=== PATIENT | male | born 1970 | race American Indian/Alaskan Native ===

== ENCOUNTER 2025-02-22 13:26 | Outpatient (AMB) | payer OTHER, SELFPAY ==
--- NOTE | 2025-02-22 13:30 | MHC.PC.OV ---
Vital Signs 02/22/25 13:38 Height 5 ft 5 in Weight 159 lb BMI 26.5 BP 135/84 Blood Pressure Location Lt brachial Position Sitting Respiration 16 Pulse 74 Pulse Source Pulse Oximeter Temp 97.8 F Temp Source Oral Pulse Oximetry (%) 100 Oxygen Delivery Method Room Air Intake Visit Reasons: Est. Care allergies and anemia Intake Note: patient here for new patient visit c/o allergies and anemia Flight Radio Officer Required: No Accompanied by: Daughter Allergies No Known Allergies Allergy (Verified 02/22/25 13:43) Medication List - Last Reconciled 02/22/25 by Cain Francis CNP No Known Home Meds Tobacco use date assessed: 02/22/25 Dental Screening Dental Screen Date: 02/22/25 Did you have a dental visit in the last 12 months?: No Did you have a dental problem in the last 6 months where you did not have access to dental care?: No Was dental information given to patient?: Yes HPI HPI Comments History of Present Illness Details 54-year-old [place] speaking male, accompanied by his daughter presents to establish care. He is not on prescription medications. He takes Claritin daily for allergies. Reports nosebleeds, moderate bright red blood from his nostrils 3-4 times daily, lasting 6-8 minutes. His last episode was around 12 noon today. He experiences fatigue with severe nosebleeds. His symptoms have been ongoing for the past 3 years; he has never been evaluated by a specialist. He reports associated runny nose and nasal congestion, denies headaches. He notes that his right ear was itching and therefore inserted a Q-tip in the ear 3 days ago which caused bleeding. Prior PCP? - Dr. Sanchez, [facility] Last office visit/CPE/labs - 10 years ago Acute issue(s) - None Past Medical History - Anemia, nosebleeds, Allergies Surgical History - None Family History - None Social History - Nonsmoker. Does not vape. Drinks 2 beers weekly . Denies recreational drug use - Has been making healthy dietary choices. Walks regularly. Generally sleep well Health maintenance - Last eye exam was in 10/2022 with [facility]. Referred to [facility] for an eye exam - Last dental was several years ago; encouraged to schedule an appointment with his dentist for routine dental care - Last tetanus vaccine was more than 10 years ago; received Tdap vaccine today - He has not been vaccinated for shingles. Encouraged to get vaccinated for shingles at the local pharmacy - Has not been vaccinated for the flu this season; receives vaccination today - He has never had a colonoscopy. Referred to [facility] gastroenterology for colonoscopy Specialists - None Interpretation by the patient's daughter per patient's preference. [facility] Social History Housing: House Patient Tobacco Use Status: Never used Tobacco e-Cigarette/Vaping Use: Never Used Second Hand Smoke Exposure: No service: No Current occupational status: employed Current occupation: [employer] Current occupational exposures/hazards: No Cognitive needs: No Hearing needs: No Vision needs: No Questionnaire PHQ-9 Over the last 2 weeks, how often have you been bothered by any of the following problems? 1. Little interest or pleasure in doing things: not at all 2. Feeling down, depressed, or hopeless: not at all 3. Trouble falling or staying asleep, or sleeping too much: several days 4. Feeling tired or having little energy: not at all 5. Poor appetite or overeating: not at all 6. Feeling bad about yourself - or that you are a failure or have let yourself or your family down: not at all 7. Trouble concentrating on things, such as reading the newspaper or watching television: not at all 8. Moving or speaking so slowly that other people could have noticed. Or the opposite - being so fidgety or restless that you have been moving around a lot more than usual: not at all 9. Thoughts that you would be better off or of hurting yourself in some way: not at all Total score: 1 Depression Screening Interpretation: Negative Depression Screening Done: Yes 64709 - PHQ-9 Billing: Yes Source: Developed by Drs. Chance Rondon, Maira Barrios, Jorje Harvey and colleagues, with an educational rl from [employer]. Thrive Questionnaire Date Thrive assessed: 02/22/25 I am a: Patient What is your living situation today?: I have a steady place to live Within the past 12 months, did the food you bought not last and you didn't have the money to get more?: I choose not to answer this question Within the past 12 months, did you worry whether your food would run out before you got money to buy more?: I choose not to answer this question Do you have trouble paying for medicines?: No Do you have trouble getting transportation to medical appointments?: No Do you have trouble paying your heating and electricity bill?: No Do you have trouble taking care of your child, family member or friend?: No Do you have trouble with day-to-day activities such as bathing, preparing meals, shopping, managing finances, etc.?: No Are you currently unemployed and looking for a job?: No Are you interested in more education?: I choose not to answer this question Please select the resources that you would like help with: None Currently or been in a relationship where the following occur: I choose not to answer THRIVE Score: 0 AUDIT C Alcohol Use Questionnaire (AUDIT-C) 1. How often do you have a drink containing alcohol?: 2-3 times a week 2. How many drinks containing alcohol do you have on a typical day when you are drinking?: 1 or 2 3. How often do you have six or more drinks on one occasion?: Weekly Total Score: 6 Score Reviewed/Action Taken: Yes TRACY-7 AMB Questionnaire TRACY-7 Date TRACY - 7 assessed: 02/22/25 Feeling nervous, anxious, or on edge: 0 = Not at all Not being able to stop or control worryin = Not at all Worrying too much about different things: 0 = Not at all Trouble relaxin = Not at all Being so restless that it is hard to sit still: 0 = Not at all Becoming easily annoyed or irritable: 0 = Not at all Feeling afraid as if something awful might happen: 0 = Not at all Total TRACY-7 score (0-4 normal; 5-9 mild; 10-14 moderate; 15-21 severe): 0 Source: Developed by Drs. Chance Rondon, Maira Barrios, Jorje Harvey and colleagues, with an educational rl from [employer]. TRACY-7 Assessment Billing TRACY-7 Assessment Tool: TRACY-7 Assessment 71959 Review of Systems Const Details: Denies chills, Denies fatigue, Denies fever(s), Denies headache(s) and Denies weakness HEENT Reports nasal congestion, Denies change in vision, Denies dizziness, Denies headache(s), Denies hearing loss, Denies sinus pain, Denies sinus pressure and Denies sore throat Card Denies chest pain, Denies lightheadedness, Denies dyspnea and Denies other (palpitations) Resp Denies cough, Denies dyspnea and Denies wheezing GI Denies abdominal pain, Denies melena, Denies hematochezia, Denies change in bowel habits, Denies dyspepsia and Denies nausea Denies hematuria and Denies dysuria Musc Denies abnormal gait, Denies myalgias, Denies arthralgias, Denies numbness and Denies tingling Skin/Breast Denies rash, Denies unusual bruising and Denies wounds Neuro Denies abnormal gait, Denies dizziness, Denies headache(s), Denies memory loss, Denies numbness, Denies Sensory deficit (Neuro), Denies tingling and Denies weakness Psych Denies anxiety, Denies depression and Denies memory loss Endo Denies cold intolerance, Denies fatigue, Denies heat intolerance, Denies polydipsia and Denies polyuria Yimi/Lymph Reports nosebleeds and Denies easy bruising Aller/Immun Denies wheezing Physical exam (Primary Care) Vital Signs: Last Vital Signs Temp 97.8 F 02/22/25 13:38 Pulse 74 02/22/25 13:38 Resp 16 02/22/25 13:38 BP 135/84 02/22/25 13:38 Pulse Ox 100 02/22/25 13:38 Oxygen Delivery Method Room Air 02/22/25 13:38 BMI result Body Mass Index 26.5 Tobacco/Smoking Status: Tobacco use Status Tobacco use date assessed 02/22/25 02/22/25 13:38 Patient Tobacco Use Status Never used Tobacco 02/22/25 13:38 e-Cigarette/Vaping Use Never Used 02/22/25 13:38 PHQ-9: PHQ-9 Score PHQ-9: Total score 1 02/22/25 14:26 Depression Screening Interpretation: Negative Thrive Assessment: Date of Thrive Assessment Date Thrive assessed 02/22/25 02/22/25 13:35 Currently or been in a relationship where the following occur: I choose not to answer Const Other: General: no acute distress, well developed, alert and awake Nutritional Appearance: well nourished Orientation/consciousness: patient oriented x3 HENMT Head: Yes normocephalic and Yes atraumatic Ears: hearing grossly normal bilaterally and left TM normal. Right TM with approximately a quarter rupture, no blood or active bleeding noted General nose exam: Nasal turbinate with moderate erythema in significant edema, left worse than right. Dried blood noted in left nare. No active bleeding. Normal external nose present Mouth: Normal oral and palatal mucosa present and moist mucous membranes Teeth and gingiva: dentition normal Throat: Yes oropharynx normal Eyes Pupils: Equal, round and reactive pupils present and Pupil accommodation reflex normal EOM: EOMs intact bilaterally Neck Neck: Yes normal visual inspection, Yes no lymphadenopathy and Yes trachea midline Thyroid: Thyroid normal Carotids: no bruits Lymphatic: no lymphadenopathy noted Chest Chest palpation & inspection: normal inspection of the chest Resp Effort & Inspection: normal respiratory effort Auscultation: clear to auscultation bilaterally Cardio Rate: regular rate Rhythm: regular rhythm Heart sounds: S1 normal heart sound present, S2 normal heart sound present, no gallops, no murmurs and no rubs Bruits: no abdominal aortic bruits and no carotid bruits GI Palpation (GI): No Abdominal aortic bruit present, Soft to palpation, nontender, No hepatosplenomegaly present and No Rebound tenderness present Auscultation: normal bowel sounds General: Yes no CVA tenderness Back/Spine/Pelvis Back: no CVA tenderness Cervical Spine: cervical ROM normal and No Cervical spine tenderness Thoracic/Lumbar Spine: thoraco-lumbar ROM normal, No pain with thoraco-lumbar ROM, No thoracic spinal tenderness and No lumbar spinal tenderness Skin General: warm and dry. Normal skin color. Normal skin turgor Lesions: no lesions Rashes: no rashes Trauma: no lacerations or abrasions Wounds: no wounds Nails: normal Neuro General: patient oriented x3, gait normal and CN's II-XI intact bilaterally Cranial nerves: Yes Equal, round and reactive pupils present Cognition (Neuro): normal cognition Gait exam (Neuro): Normal gait present Motor exam (neuro): 5/5 motor strength present throughout Sensory Exam: No Sensory deficit (Neuro) Deep tendon reflexes (DTR's): Right patellar reflex intensity grade: 2+ and Left patellar reflex intensity grade: 2+ Extrem General: Yes normal to inspection, No edema and No calf tenderness Psych Appearance: grossly normal Affect: normal affect Attitude: cooperative Thought process: Normal thought process present Office Procedures Flu Questionnaire Does the patient have a severe egg allergy?: No Does the patient have severe life threatening allergies?: No Does the patient have a fever or illness today?: No Has the patient ever had Guillain-Mehama Syndrome?: No Has the patient ever had any past reaction to a flu shot?: No Immunizations Fluarix 2610-7427 (PF) 45 mcg (15 mcg x 3)/0.5 mL IM syringe Performing Provider: Cain Francis CNP Performing Location: [facility] Administered by: Geovany Torres RN on 02/22/25 14:27 Dose Route Admin Location Dispensed Lot Number Expiration Date NDC Exhibition [employer]er 0.5 mL IM Left Deltoid 0.5 mL [id number] 11/19/25 [id number] [employer] VIS Given Date VIS Provided VIS Publication Date 02/22/25 Single Vaccine 24 Eligibility Eligibility Date Funding Source Not VFC Eligible 02/22/25 Private Boostrix Tdap 2.5 Lf unit-8 mcg-5 Lf/0.5 mL intramuscular syringe Performing Provider: Cain Francis CNP Performing Location: [facility] Administered by: Geovany Torres RN on 02/22/25 14:27 Dose Route Admin Location Dispensed Lot Number Expiration Date NDC Exhibition [employer]er 0.5 mL IM Left Deltoid 0.5 mL [id number] 03/15/27 [id number] [employer] Total Dispensed Waste 0.5 mL 0 % VIS Given Date VIS Provided VIS Publication Date 02/22/25 Single Vaccine 20 Eligibility Eligibility Date Funding Source Not VFC Eligible 02/22/25 Private Coding Level of Care Code New Pt Level 4 (45701) New Pt Prev Care 40-64y(34074) Diagnoses Normal physical examination, routine Z00.00 Epistaxis R04.0 Allergies T78.40XA Colon cancer screening Z12.11 Prostate cancer screening Z12.5 Eye exam, routine Z01.00 Perforated right tympanic membrane on examination H72.91 Laboratory tests ordered as part of a complete physical exam (CPE) Z00.00 Additional Codes TRACY-7 Assessment Billing - TRACY-7 Assessment Tool: TRACY-7 Assessment 70981 ([id number]) PHQ-9 - 15132 - PHQ-9 Billing: Yes ([id number]) Time Spent (min) 65 Assessment & Plan Assessment & Plan (1) Normal physical examination, routine: Code(s): Z00.00 - Encounter for general adult medical examination without abnormal findings Category: Medical Plan: No significant motion limitations noted. Continue current treatment regimen. Healthy diet and routine exercise encouraged. Perform lab work and follow-up for a telehealth visit for labs review in 2-4 weeks. Return sooner with symptoms or concerns. Verbalized understanding and agreed with the plan. (2) Epistaxis: Code(s): R04.0 - Epistaxis Category: Medical Plan: Reports nosebleeds, moderate bright red blood from his nostrils 3-4 times daily, lasting 6-8 minutes. His last episode was around 12 noon today. He experiences fatigue with severe nosebleeds. His symptoms have been ongoing for the past 3 years; he has never been evaluated by a specialist. He reports associated runny nose and nasal congestion, denies headaches. Nasal turbinate with moderate erythema in significant edema, left worse than right. Dried blood noted in left nare. No active bleeding. Flonase ordered; advised to use as prescribed. Continue to take Claritin daily. May take cetirizine instead if Claritin is not effective. Referred to ENT for further workup. Follow-up with worsening or new symptoms. Verbalized understanding and agreed with the plan. (3) Allergies: Code(s): T78.40XA - Allergy, unspecified, initial encounter Category: Medical Plan: Plan as above. (4) Colon cancer screening: Code(s): Z12.11 - Encounter for screening for malignant neoplasm of colon Category: Medical Plan: He has never had a colonoscopy. Referred to [facility] gastroenterology for colonoscopy. (5) Prostate cancer screening: Code(s): Z12.5 - Encounter for screening for malignant neoplasm of prostate Category: Medical Plan: Will check PSA level. (6) Eye exam, routine: Code(s): Z01.00 - Encounter for examination of eyes and vision without abnormal findings Category: Medical Plan: Last eye exam was in 10/2022 with [facility]. Referred to [facility] for an eye exam. (7) Perforated right tympanic membrane on examination: Code(s): H72.91 - Unspecified perforation of tympanic membrane, right ear Category: Medical Plan: He notes that his right ear was itching and therefore inserted a Q-tip in the ear 3 days ago which caused bleeding. Approximately a quarter of the TM appears to be ruptured, no blood or active bleeding noted. Declines hearing impairment. Follow-up as needed. Verbalized understanding and agreed with plan. (8) Laboratory tests ordered as part of a complete physical exam (CPE): Code(s): Z00.00 - Encounter for general adult medical examination without abnormal findings Category: Medical Plan: Fasting labs ordered as part of a complete physical exam. Advised to fast for at least 10 hours before getting labs drawn. May drink water Verbalized understanding and agreed with treatment plan. Plan Total time for this visit was 65 minutes. This include 50 minutes with patient for physical exam and chronic disease management/treatment, and 15 minutes reviewing, coordinating plan of care, and documenting. Orders: Orders Complete Blood Count Auto Diff Today Z00.00 - Encounter for general adult medical examination without abnormal findings Comprehensive [place]. Panel Fast Today Z00.00 - Encounter for general adult medical examination without abnormal findings Microalbumin, Random (w Creat) Today Z00.00 - Encounter for general adult medical examination without abnormal findings PSA, Ultra Sensitive Today Z00.00 - Encounter for general adult medical examination without abnormal findings TSH reflex Free T4 Today Z00.00 - Encounter for general adult medical examination without abnormal findings UA CC w/rflx Micro + Cult Today Z00.00 - Encounter for general adult medical examination without abnormal findings Lipid Panel Today Z00.00 - Encounter for general adult medical examination without abnormal findings Vitamin D 25-OH Total Today Z00.00 - Encounter for general adult medical examination without abnormal findings Influenza [id number] Immunization Today Z23 - Encounter for immunization TDaP Immunization Today Z23 - Encounter for immunization Referrals Ophthalmology Referral Z01.00 - Encounter for examination of eyes and vision without abnormal findings Ear/Nose/Throat Referral R04.0 - Epistaxis Gastroenterology Referral Z12.11 - Encounter for screening for malignant neoplasm of colon Medications: New fluticasone propionate 50 mcg/actuation (Flonase Allergy Relief) Administer into each nostril. Two actuations in each nostril daily x1 week; and then 1-2 actuations in each nostril daily 2 sprays intranasal DAILY 16 grams 2RF
[2025-02-22 13:38] VITALS: BP 135/84; PULSE 74; RESP 16; TEMP 36.6; O2SAT 100; BMI 26.5
== END 2025-02-22 14:26 | disposition home or self-care (01) ==
LOC: HO.HMCFM 13:26
PROVIDERS: PCP Nurse Practitioner Family; Visit Provider Nurse Practitioner Family
DX: Z00.00 Encounter for general adult medical examination without abnormal findings (principal); R04.0 Epistaxis; H72.91 Unspecified perforation of tympanic membrane, right ear; T78.40XA Allergy, unspecified, initial encounter; Z12.11 Encounter for screening for malignant neoplasm of colon; Z12.5 Encounter for screening for malignant neoplasm of prostate; Z23 Encounter for immunization

== ENCOUNTER → 2025-02-22 13:26 | Outpatient (BNVA) | payer OTHER, SELFPAY | PROVIDERS: PCP Nurse Practitioner Family; Visit Provider Nurse Practitioner Family | DX: Z00.00 Encounter for general adult medical examination without abnormal findings (principal); R04.0 Epistaxis; H72.91 Unspecified perforation of tympanic membrane, right ear; Z23 Encounter for immunization; Z91.09 Other allergy status, other than to drugs and biological substances | CPT/HCPCS: 90471; 90472; 90656; 90715; 96127; 99202; 99386 ==

== ENCOUNTER 2025-02-25 10:12 | Outpatient (REF) | payer OTHER, SELFPAY ==
[2025-02-25 11:36] LABS: MANUAL DIFF FLAG NO
[2025-02-25 11:40] LABS: Hematocrit 45.7 % (42.0-52.0); Hemoglobin 15.0 g/dl (14.0-18.0); Imm Gran Abs Auto 0.02 X10*3/uL (0.00-0.03); Imm Gran Pct Auto 0.3 % (0.0-0.4); Lymphocytes Absolute Auto 1.2 X10*3/uL (1.2-4.9); Mean Corpuscular HGB Conc 32.8 g/dl (31.0-36.0); Mean Corpuscular Hemoglobin 29.1 pg (27.0-33.0); Mean Corpuscular Volume 88.7 fL (80.0-98.0); NRBC Abs Auto 0.000 X10*3/uL (0.0-0.012); NRBC Pct Auto 0.0 /100WBC (0.0-0.2); Platelet Count 227 X10*3/uL (160-400); Red Blood Count 5.15 X10*6/uL (4.60-5.80); White Blood Count 6.0 X10*3/uL (4.8-10.8)
[2025-02-25 12:12] LABS: Alanine Aminotransferase 58 U/L (0-40); Albumin Level 4.0 g/dL (3.5-5.0); Alkaline Phosphatase 62 U/L (39-117); Anion Gap 8 (12-20); Aspartate Amino Transferase 48 U/L (5-37); Blood Urea Nitrogen 16 mg/dL (9-16); Calcium 9.2 mg/dL (8.4-10.2); Carbon Dioxide 25 mmol/L (22-29); Chloride 109 mmol/L (96-108); Cholesterol 206 mg/dL (<200); Estimated Glomerular Filt Rate > 60; HDL Cholesterol 47 mg/dL (>40); Potassium 3.8 mmol/L (3.3-5.1); Sodium 138 mmol/L (135-145); Total Protein 7.4 g/dL (6.5-8.0); Triglycerides 207 mg/dL (<150)
[2025-02-25 14:55] LABS: Appearance Urine Turbid; Glucose Urine UA Negative (Negative); PH 5.0 (5.0-9.0); Specific Gravity - Urine 1.020 (1.005-1.025); UMIC TRIGGER UACC YES
[2025-02-25 16:35] LABS: Microalbum/Creatinine Ratio Ur 453.8 ug/mg cr (<30)
[2025-03-01 18:53] LABS: PSA, Ultra Sensitive 0.64 ng/mL
== END 2025-02-25 10:13 | disposition home or self-care (01) ==
LOC: HO.WFDLDS 10:12
PROVIDERS: Visit Provider Nurse Practitioner Family
DX: Z00.00 Encounter for general adult medical examination without abnormal findings (principal)
CPT/HCPCS: 36415; 80053; 80061; 81001; 82043; 82306; 82570; 84153; 84443; 85025

== ENCOUNTER 2025-03-08 10:56 | Outpatient (AMB) | payer OTHER, SELFPAY ==
--- NOTE | 2025-03-08 10:48 | A.OFFPC_ITS ---
Intake Visit Reasons: Tele 2-4 wks labs review Intake Note: patient here for 2-4 wks follow up on lab review Supervisor Quality Control Required: No Accompanied by: Daughter Allergies No Known Allergies Allergy (Verified 03/08/25 10:53) Tobacco use date assessed: 03/08/25 Dental Screening Dental Screen Date: 03/08/25 Did you have a dental visit in the last 12 months?: No Did you have a dental problem in the last 6 months where you did not have access to dental care?: No Was dental information given to patient?: No HPI HPI Comments History of Present Illness Details 54-year-old [place] Speaking male present s for a telehealth visit for review of recent lab results. Patient's daughter is present. According to his daughter, patient drinks 2 cans of beer twice weekly and consume significant amount of juice and soda daily. He does not drink much water. He also consumed significant amount of red meat and dairy products. He denies acute symptoms at this time. He requests antihistamine for allergies. Interpretation by the patient's daughter per patient's preference. [facility] Social History Housing: House Patient Tobacco Use Status: Never used Tobacco e-Cigarette/Vaping Use: Never Used Second Hand Smoke Exposure: No service: No Current occupational status: employed Current occupation: [employer] Current occupational exposures/hazards: No Cognitive needs: No Hearing needs: No Vision needs: No Questionnaire Thrive Questionnaire Date Thrive assessed: 02/22/25 TRACY-7 AMB Questionnaire TRACY-7 Date TRACY - 7 assessed: 02/22/25 Source: Developed by Drs. Chance Rondon, Maira Barrios, Jorje Harvey and colleagues, with an educational rl from [employer]. Review of Systems Const Details: Denies chills, Denies fatigue, Denies fever(s), Denies headache(s) and Denies weakness Cardiac Denies chest pain, Denies claudication, Denies leg edema, Denies lightheadedness, Denies palpitations, Denies dyspnea, Denies dyspnea on e xertion, Denies orthopnea and Denies other (Loss of consciousness) Resp Denies cough, Denies excessive phlegm production, Denies dyspnea, Denies dyspnea on exertion, Denies snoring and Denies wheezing Physical exam (Primary Care) Tobacco/Smoking Status: Tobacco use Status Tobacco use date assessed 03/08/25 03/08/25 10:54 Patient Tobacco Use Status Never used Tobacco 03/08/25 10:48 e-Cigarette/Vaping Use Never Used 03/08/25 10:48 Thrive Assessment: Date of Thrive Assessment Date Thrive assessed 02/22/25 03/08/25 10:48 Const Other: Patient is alert and oriented x3 Telehealth Telehealth Telehealth Platform: Telephone Location of provider rendering services: practice address Location of patient: address on file Patient Identification confirmed using: Name, : Yes Telehealth method: voice only Patient verbally consented to treatment: Yes Patient verbally consented to billing insurance company: Yes Patient informed of any privacy concerns related to visit: Yes Coding Level of Care Code Tele Est Pt Level 3 (90508) Diagnoses Hypercholesterolemia E78.00 Transaminitis R74.01 Vitamin D deficiency E55.9 Microalbuminuria R80.9 Time Spent (min) 20 Assessment & Plan Assessment & Plan (1) Hypercholesterolemia: Code(s): E78.00 - Pure hypercholesterolemia, unspecified Category: Medical Plan: Recent triglycerides, total cholesterol, and LDL levels are elevated, 207, 206, and 118 respectively, HDL is normal. He consumed significant amount of red meat and dairy products. Advised to limit foods high in saturated fat and avoid foods high in trans fat. Routine exercise encouraged. Performed fasting lab work a few days before next visit. Follow-up for a telehealth visit in 2 months. Return sooner with symptoms or concerns. Verbalized understanding and agreed with the plan. (2) Transaminitis: Code(s): R74.01 - Elevation of levels of liver transaminase levels Category: Medical Plan: Recent AST and ALT levels are slightly elevated, 48 and 58 respectively. Fatty liver deposit is likely. Plan as above. Will recheck liver enzymes in 2 months. Verbalized understanding and agreed with the plan. (3) Vitamin D deficiency: Code(s): E55.9 - Vitamin D deficiency, unspecified Category: Medical Plan: Recent vitamin-D level is slightly low, 26.2. Vitamin D3 25 mcg daily ordered; advised to take as prescribed. Will recheck vitamin-D level in 2 months. Verbalized understanding and agreed with the plan. (4) Microalbuminuria: Code(s): R80.9 - Proteinuria, unspecified Category: Medical Plan: Recent urine microalbumin/creatinine ratio is significantly elevated, 453.8. UA revealed proteinuria. Creatinine level is normal. His water intake is poor. He consumes significant amount of juice and soda. He drinks 2 cans of beer twice weekly. Likely dehydration. Advised to significantly cut down or avoid alcohol/juice/soda intake. Encouraged to increase water intake. Will recheck urine microalbumin level in 2 months. Verbalized understanding and agreed with plan. Orders: Orders Microalbumin, Random (w Creat) 2 Months R80.9 - Proteinuria, unspecified Lipid Panel 2 Months E78.00 - Pure hypercholesterolemia, unspecified Liver Panel 2 Months R74.01 - Elevation of levels of liver transaminase levels Vitamin D 25-OH Total 2 Months E55.9 - Vitamin D deficiency, unspecified Medications: New cholecalciferol (vitamin D3) 25 mcg PO DAILY 90 tabs 3RF 90 days cetirizine 10 mg PO DAILY 30 tabs 3RF 30 days
== END 2025-03-08 12:05 | disposition home or self-care (01) ==
LOC: HO.HMCFM 10:56
PROVIDERS: PCP Nurse Practitioner Family; Visit Provider Nurse Practitioner Family
DX: E78.00 Pure hypercholesterolemia, unspecified (principal); R74.01 Elevation of levels of liver transaminase levels; E55.9 Vitamin D deficiency, unspecified; R80.9 Proteinuria, unspecified